=== PATIENT | male | born 1945 | race Caucasian/White ===

== ENCOUNTER 2018-08-27 06:55 | Day surgery (SDC) | payer BC ==
[2018-08-25 12:17] VITALS: BMI 21.4
[~2018-08-27] VITALS: Ht 160 cm; Wt 73.6 kg
[2018-08-27] VITALS (11 sets, daily range): BP systolic 127–146; BP diastolic 73–81; PULSE 54–78; RESP 12–18; Ht 160 cm; Wt 73.6 kg
[~2018-08-27 06:55] MED LIST: ACETAZOLAMIDE 250 MG TAB PO ONE; DICLOFENAC 0.1% 2.5 ML OPH OPER SCH; LIDOCAINE 4% (MPF) 5 ML INJ OPER ONE; MOXIFLOXACIN 0.5% 3 ML OPH OPER SCH; PHENYLephrine 10% 5 ML OPH OPER SCH; TROPICAMIDE 1% 15 ML OPH OPER SCH
[2018-08-27] MEDS ORDERED: HYDR25TA6 PO (08:22)
[2018-08-27] MEDS ORDERED: ASPI81TA52 PO (08:22)
[2018-08-27] MEDS ORDERED: CRES20 PO (08:22)
[2018-08-27] MEDS ORDERED: METF500T24 PO (08:23)
[2018-08-27] MEDS ORDERED: CHOL100062 PO (08:24)
[2018-08-27] MEDS ORDERED: GABA100C14 PO (08:24)
[2018-08-27] MEDS ORDERED: AMLO5TAB4 PO (08:25)
[2018-08-27] MEDS ORDERED: MAGN71.5 PO (08:25)
[2018-08-27] MEDS ORDERED: GLIM2TAB PO (08:26)
--- NOTE | 2018-08-27 09:27 | PREAC ---
Date/Time of Note Date/Time of Note DATE: 08/27/18 TIME: : Anesthesia Eval and Record Evaluation Time Pre-Procedure Interview DATE: 08/27/18 TIME: : Age 73 Sex male NPO: 8 hrs Preoperative diagnosis right eye cataract Planned procedure right cataract extraction, intraocular lens implant Past Medical History Past Medical History: Includes Cardio: HTN, Dyslipidemia Endo: Diabetes Renal: BPH Surgery & Anesthesia Issues No known issue Meds Anticoagulation: No Beta Nicola within 24 hr: No Reason Beta Nicola not given: Pt. not on B-Nicola Reported Medications Glimepiride* (Glimepiride*) 2 Mg Tablet, 2 MG PO WITH BREAKFAST, TAB 08/27/18 Amlodipine Besylate* (Norvasc*) 5 Mg Tablet, 5 MG PO DAILY, TAB 08/27/18 Magnesium Chloride (Slow-Mag) 71.5 Mg Tablet.dr, 71.5 MG PO DAILY 08/27/18 Cholecalciferol* (Vitamin D3*) 1,000 Unit Tablet, 1000 UNIT PO DAILY, TAB 08/27/18 Gabapentin* (Gabapentin*) 100 Mg Capsule, 100 MG PO BID, #90 CAP 08/27/18 Metformin Hcl* (Metformin Hcl*) 500 Mg Tablet, 500 MG PO WITH MEALS, #90 TAB 08/27/18 Hydrochlorothiazide* (Hydrochlorothiazide*) 25 Mg Tab, 25 MG PO DAILY, #30 TAB 08/27/18 Rosuvastatin Calcium* (Crestor*) 20 Mg Tablet, 20 MG PO QHS, #30 TAB 08/27/18 Aspirin (Low Dose Aspirin) 81 Mg Tablet.dr, 81 MG PO DAILY, #30 TAB 08/27/18 Current Medications Diclofenac Sodium (Voltaren 0.1%) 1 drop Q5 MIN X 3 OPER Last administered on 08/27/18at 07:35; Admin Dose 1 DROP; Start 08/27/18 at 06:00 Moxifloxacin HCl (Vigamox) 1 drop Q5 MIN X 3 OPER Last administered on 08/27/18at 07:35; Admin Dose 1 DROP; Start 08/27/18 at 06:00 Phenylephrine HCl (Ak-Dilate 10%) 1 drop Q5 MIN X 3 OPER Last administered on 08/27/18at 07:35; Admin Dose 1 DROP; Start 08/27/18 at 06:00 Tropicamide (Mydriacyl 1%) 1 drop Q5 MIN X3 OPER Last administered on 08/27/18at 07:35; Admin Dose 1 DROP; Start 08/27/18 at 06:00 Meds reviewed: Yes Allergies Coded Allergies: mushroom (Verified Allergy, Mild, 08/27/18) Allergies Reviewed: Yes Labs/Studies Labs Reviewed: Reviewed by anesthesiologist test: N/A Studies: ECG Pre-procedure Exam Last vitals Vital Signs Date Temp Pulse Resp B/P (MAP) Pulse Ox O2 O2 Flow FiO2 Time Delivery Rate 08/27/18 97.7 78 16 143/81 95 Room Air 08:00 (101) Airway: Adequate mouth opening, Adequate thyromental dist Mallampati: Mallampati II Teeth: Normal Lung: Normal Heart: Normal ASA Physical Status ASA physical status: 2 Emergency: None Planned Anesthetic General/MAC: Mask Planned Pain Management Parenteral pain med, Local by surgeon Pre-operative Attestations Prior to commencing anesthesia and surgery, the patient was re-evaluated, there was verification of: *The patient's identity *The results of appropriate recent lab work and preoperative vital signs *The above evaluation not changing prior to induction *Anesthetic plan, risk benefits, alternative and complications discussed with patient/family; questions answered; patient/family understands, accepts and wishes to proceed. Director Of Medical Services used SAUL LAU MD Aug 27, 2018 09:27
[2018-08-27] MEDS ORDERED: DIPHENHYDRAMINE 50 MG INJ IV PRN (09:30)
[2018-08-27] MEDS ORDERED: HYDROmorphONE 1 MG/5 ML IV SYRINGE IV PRN ×3 (09:30)
[2018-08-27] MEDS ORDERED: PROCHLORPERAZINE 10 MG INJ IV PRN (09:30)
[2018-08-27] MEDS ORDERED: LABETALOL HCL 20MG INJ IV PRN (09:30)
[2018-08-27] MEDS ORDERED: FENTAnyl 50 MCG/ML VIAL IV PRN (09:30)
[2018-08-27] MEDS ORDERED: ONDANSETRON 4 MG INJ IV PRN (09:30)
[2018-08-27] MEDS ORDERED: OXYCODONE/ACETAMINOPHEN (5/325) TAB PO PRN (09:30)
[2018-08-27] MEDS ORDERED: hydrALAzine 20 MG INJ IV PRN (09:30)
[2018-08-27] MEDS ORDERED: MEPERIDINE 25 MG INJ IV PRN (09:30)
[2018-08-27] MEDS ORDERED: TETRACAINE 0.5% 4 ML OPH OP ONE (09:35)
[2018-08-27] MEDS ORDERED: FENTAnyl 50 MCG/ML VIAL ONE (09:36)
[2018-08-27] MEDS ORDERED: MIDAZOLAM 1 MG/ML 2 ML INJ ONE (09:36)
[2018-08-27] MEDS ORDERED: LIDOCAINE 1.5%/EPI MPF (SDV) 30 ML VIAL INJ ONE (09:45)
[2018-08-27] MEDS ORDERED: SODIUM HYALURONATE 14 MG/ML SYG ONE (09:54)
[2018-08-27] MEDS ORDERED: CARBACHOL 0.01% 1.5 ML OPH INJ RIGHT EYE ONE (10:01)
[2018-08-27] MEDS ORDERED: TOBRAMYCIN 0.3% 3.5 GM OPH OINT RIGHT EYE ONE (10:02)
--- NOTE | 2018-08-27 10:25 | HPN ---
Date/Time of Note Date/Time of Note DATE: 08/27/18 TIME: 10:24 Interval H&P Admission Note Pt. seen H&P reviewed: No system changes ESTEBAN CABRERA Aug 27, 2018 10:25
--- NOTE | 2018-08-27 10:33 | PAC ---
Date/Time of Note Date/Time of Note DATE: 08/27/18 TIME: 10:33 Post-Anesthesia Notes Post-Anesthesia Note Last documented vital signs Vital Signs Date Temp Pulse Resp B/P (MAP) Pulse Ox O2 O2 Flow FiO2 Time Delivery Rate 08/27/18 98.0 10:27 08/27/18 78 16 143/81 95 Room Air 08:00 (101) Activity: WNL Respiratory function: WNL Cardiovascular function: WNL Mental status: Baseline Pain reasonably controlled: Yes Hydration appropriate: Yes Nausea/Vomiting absent: Yes Comments BP: 135/84 HR: 62 RR: 15 T: 98 SaO2: 95%SAUL SANDERS MD Aug 27, 2018 10:33
--- NOTE | 2018-08-27 10:35 | OPR ---
Date/Time of Note Date/Time of Note DATE: 08/27/18 TIME: 10:25 Operative Report Free Text/Dictation Procedure Date: 08/27/2018 Pre-operative diagnosis: Visually significant cataract, right eye Postoperative diagnosis: 1- Visually significant cataract, right eye 2- floppy iris syndrome, right eye Procedure: Complex Phacoemulsification with Intra-ocular lens placement, right eye Surgeon: Esteban Cabrera MD Clinical Application Consultant: none Anesthesia Type: MAC, local anesthesia Anesthesiologist: DC Tourniquet Time: NA Estimated blood loss: None Transfusions: none Specimen: None Grafts/Implants: IOL: [id number], power +7.00 Tubes/Drains: None Complications: None Pt Condition Post Procedure: stable Disposition: home Findings: opacified lens Indications for procedure: The patient is 73 year-old male with Visually significant cataract, who presented with blurred vision and difficulty reading and driving. Past medical history is significant for HTN, HLD, BPH and DM. Past surgical history is significant for hemorrhoid surgery 15 years ago. The patient is using ASA, Vit D3, amlodipine, gabapentin, glimepride, metformin, rouvastatin, trazosin, valasartan. 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 There is no history of glaucoma or any other hereditary ophthalmic disease in the family. 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 The left eye has hydrops. Review of system is negative except for the blurred vision in the affected eye. VA in the operated eye 20/150, IOP 14 mmHg. Pupils are reactive with no RAPD. Slit lamp exam: cornea is clear with inferior thinning, deep anterior chamber, 2+ cortical cataract, 3+ nuclear sclerosis cataract, there is no psudoexfoliation present at the pupillary margin or anterior lens capsule. On funds exam cup/disc ratio is 0.3, macula shows normal foveal reflex, retina is attached. Risk, benefit and alternative to cataract surgery was explained to the patient, who agreed to proceed with the procedure. The informed consent was signed by the patient. Description of procedure: The patient was seen by me along with anesthesia team in the pre op area and the surgical site was marked and confirmed. Anesthetic drops along with dilating drops was instilled in surgical eye in the pre op. The patient was then brought back to the operating room placed in supine position. The eye was prepped with Betadine 5% and draped in sterile manner for the ophthalmic surgery. An eyelid speculum was was placed to keep the eyelid open. Paracentesis wound was made superiorly and inferiorly though clear cornea near the limbus using 1.2mm side-port blade. Preservative free Lidocaine 1.5% with epinephrine was injected into the anterior chamber through the paracentesis wound. The anterior chamber was inflated with viscoelastic (viscoat). A keratom blade was used to make a bi-planar, shelved, clear corneal incision, starting at temporal limbus and then tunnel-ing through clear cornea to enter the anterior chamber. A circular curvilinear continue capsulorrhexis was initiated by cystotom and continued with utrata forceps. The capsular flap then was removed. Hydrodissection and hydrodelineation was performed using BSS until the lens was freely rotatable. The lens nucleus was then removed using the phacoemulsification handpiece. The residual cortex was removed with the bimanual irrigation/aspiration handpieces. The iris was so floppy during the procedure and tend to prolapse through the wound. The capsular bag and anterior chamber were inflated with viscoelastic, and the IOL was inserted into the capsular bag. Using irrigation/Aspiration handpiece on the aspiration mode, Healon was removed from the anterior and posterior chamber. Miostat was injected into the AC to constrict the pupil. Main wound and paracentesis wound was hydrated by BSS. The speculum was removed. Vigamox drops and Sterile antibiotic/steroid ointment was applied to the eye. A cotton patch and clear shield were placed over the operative eye. The patient was transferred to the recovery room in stable condition. Esteban Cabrera MD [id number] ESTEBAN CABRERA Aug 27, 2018 10:35
== END 2018-08-27 12:50 | disposition home or self-care (01) ==
LOC: SDS 06:55
PROVIDERS: ATTEND Ophthalmology
DX: H26.9 Unspecified cataract (principal); H21.81 Floppy iris syndrome
CPT/HCPCS: 66982; 82962; J2250; J3010; Z7610